=== PATIENT | female | born 1975 | race African-American/Black ===

== ENCOUNTER 2018-08-17 08:07 | Emergency (ER) | payer OTHER ==
[~2018-08-17] VITALS: Ht 165.1 cm; Wt 100.5 kg
--- NOTE | 2018-08-17 08:09 | NUR ---
PT AMBULATED TO ER BED 11
[2018-08-17] MEDS ORDERED: ALBUTEROL SULFATE/IPRATROPIU 3 ML SOL IH ONE (08:20)
--- NOTE | 2018-08-17 08:27 | NUR ---
C/O SOB X 2 DAYS----COUGH CONGESTION YELLOW PHLEGM FATIGUE >1 WK; 3 WORDED SPEECH WITH SUPRACLAVICULAR ACCESSORY MUSCLE USE NOTED. UPON AUSCULTATION, EXPIRATORY WHEEZES HEARD. PATIENT POSITIONED FOR COMFORT; HOB ELEVATED; BEDRAILS UP X1; BED DOWN. ER MD MADE AWARE OF PT STATUS.
[2018-08-17 09:01] LABS: BASOPHILS % (AUTO) 0.4 % (0.0-2.0); EOSINOPHILS % (AUTO) 0.4 % (0.0-4.0); HEMATOCRIT 40.2 % (36-48); HEMOGLOBIN 12.6 g/dL (12.0-16.0); LYMPHOCYTES # (AUTO) 2.4 K/uL (2.5-16.5); MEAN CORPUSCULAR HEMOGLOBIN 28 pg (27-31); MEAN CORPUSCULAR HGB CONC 31 g/dL (33-37); MEAN CORPUSCULAR VOLUME 90.2 fL (80-94); MONOCYTES # (AUTO) 0.3 K/uL (0.8-1.0); MONOCYTES % (AUTO) 4.7 % (1.7-9.3); NEUTROPHILS # (AUTO) 3.5 K/uL (1.8-7.7); NEUTROPHILS % (AUTO) 56.5 % (42.2-75.2); PLATELET COUNT (AUTO) 240 K/uL (140-450); RED BLOOD CELL COUNT(AUTO) 4.45 MIL/uL (4.20-5.40); RED CELL DISTRIBUTION WIDTH 18.2 % (11.6-13.7); WHITE BLOOD COUNT (AUTO) 6.2 K/uL (4.8-10.8)
[2018-08-17 09:27] LABS: ANION GAP 12.6 (8-16); CARBON DIOXIDE 22.7 mmol/L (21-32); CREATININE 0.9 mg/dL (0.6-1.3); POTASSIUM 4.3 mmol/L (3.5-5.1)
--- NOTE | 2018-08-17 09:48 | NUR ---
CT ANGIO WITH CONTRAST ORDERED. CONSENTS SIGNED. IV PLACED. AWAITING BLAST SETTER.
--- NOTE | 2018-08-17 10:30 | NUR ---
PT BACK FOR CT, IV INFILTRATED WITH NS FLUSH. PT COMPLAINING OF PAIN 10/10. RIGHT AC APPEARS SWOLLEN AND TENDER TO TOUCH.
--- NOTE | 2018-08-17 11:02 | NUR ---
PT TAKEN TO CT, NEW IV PLACED LEFT AC. LINE FLUSHING WELL.
--- NOTE | 2018-08-17 11:11 | NUR ---
PT BACK FROM CT
--- NOTE | 2018-08-17 12:20 | NUR ---
Patient does not wish to proceed with medical care recommended by DR. OLIVA. Patient given information related to possible complications, up to and including , which could occur as a result of leaving hospital at this time. Patient verbalizes understanding of risks involved leaving against medical advice. Patient has signed AMA form. STATES WILL COME BACK AFTER TAKES CARE OF PERSONAL BUSINESS.
== END 2018-08-17 12:20 | disposition left against medical advice (07) ==
LOC: MED 08:07
DX: J90 Pleural effusion, not elsewhere classified (principal); J45.909 Unspecified asthma, uncomplicated
CPT/HCPCS: 36415; 71045; 71275; 80048; 81002; 81025; 83880; 84484; 84702; 85025; 85379; 93005; 94640; 99284; J7620; Q0092; Q9967

== ENCOUNTER 2018-08-17 13:26 | Inpatient (IN) | payer OTHER ==
[~2018-08-17] VITALS: Ht 165.1 cm; Wt 99.8 kg
[2018-08-17 14:10] VITALS: BP 154/105
--- NOTE | 2018-08-17 14:10 | NUR ---
PT AMBULATED TO ER BED 04
--- NOTE | 2018-08-17 14:54 | NUR ---
43/ F BIB SELF, C/O X SOB, CHEST WALL PAIN, COUGH WITH CONGESTION, AND FATIGUE X3 WEEKS. PATIENT IS AOX4, CLEAR SPEECH, WHEEZING UPON AUSCULTATION, LABORED BREATHING WITH ACSESSORY MUSCLES USE. PATIENT STATES THAT CHEST WALL PAIN ONLY OCCURS WHEN AMBULATES. OCCASIONAL VOMIT X 3 WEEKS. STEADY AMBULATION, DIZZY WHEN AMBULATING PATIENT WAS IN ER EARLIER TODAY NEEDED TO LEAVE CAME BACK TO BE ADMITTED. PATIENT IN GOWN, SAFETY PRECAUTIONS IN PLACE.
[2018-08-17] MEDS ORDERED: HYDROcodone/APAP 5/325 MG 1 TAB TAB PO PRN (14:55)
[2018-08-17] MEDS ORDERED: ALBUTEROL 0.083% 2.5 MG/3 ML NEBU IH PRN (14:55)
[2018-08-17] MEDS ORDERED: ACETAMINOPHEN 325 MG TAB PO PRN (14:55)
[2018-08-17] MEDS ORDERED: ONDANSETRON 4 MG/2 ML VIAL IVP PRN (14:55)
[2018-08-17 16:42] VITALS: BP 149/110
--- NOTE | 2018-08-17 16:42 | NUR ---
Pt report given to FAZAL TODD. Transfer of care at this time.
--- NOTE | 2018-08-17 16:42 | NUR ---
RECEIVED BEDSIDE REPORT FROM ER NURSE. PATIENT AAOX4. PATIENT ON ROOM AIR WITH NO DISTRESS NOTED. PATIENT AMBULATORY AND CONTINENT. PATIENT ON TELE MONITOR. IV ON R FA 22G SALINE LOCK. IV CLEAN DRY AND INTACT. BED IN LOW POSITION, CALL LIGHT WITHIN REACH, WILL CONTINUE TO MONITOR.
[2018-08-17 17:09] LABS: CREATINE KINASE MB 0.9 ng/mL (0-3.6)
[2018-08-17] MEDS: CARVEDILOL 3.125 MG TAB PO SCH (17:25)
[2018-08-17] MEDS: FUROSEMIDE 40 MG/4 ML VIAL IVP SCH (17:25)
--- NOTE | 2018-08-17 17:32 | NUR ---
ADMINISTERED SCHEDULED MEDS TO PATIENT. PATIENT TOLERATED WELL. WILL CONTINUE TO MONITOR.
--- NOTE | 2018-08-17 19:35 | NUR ---
RECEIVED FROM AM RN IN BED SITTING UP AND TALKING TO SOMEONE ON THE CELLPHONE. GOOD AFFECT. NO SOB NOTED. CALL LIGHT WITH IN REACH. CARE PLAN DISCUSSED WITH HER. TELEMETRY MONITORING. DX. SOB/PLEURAL EFFUSION. 02 SAT ROOM AIR 100 %. AFEBRILE. RE-ORIENTED TO CALL LIGHT USE AND ROOM. ENCOURAGED TO CALL FOR ANY HELP SHE MAY NEED OR IF IN PAIN.
--- NOTE | 2018-08-17 19:42 | NUR ---
GAVE BEDSIDE REPORT TO SURGICAL ASSIST NURSE. PATIENT ENDORSED IN STABLE CONDITION.
[2018-08-17 21:07] VITALS: BP 130/99
--- NOTE | 2018-08-17 22:15 | NUR ---
AWAKE AND TALKING TO SOMEONE ON HER CELL PHONE. NO COMPLAINTS DONE. NO SOB.
[2018-08-18] VITALS (9 sets, daily range): BP systolic 116–171; BP diastolic 82–100
--- NOTE | 2018-08-18 01:14 | NUR ---
NO COMPLAINTS DONE. STILL AWAKE AT THIS TIME TALKING TO SOMEONE ON THE PHONE. ENCOURAGED TO SLEEP AND REST. 02 SAT ROOM AIR IS 100 %. CALL LIGHT WITH IN REACH.
--- NOTE | 2018-08-18 03:00 | NUR ---
SLEEPING WELL. NO RESTLESSNESS NOTED.
--- NOTE | 2018-08-18 05:30 | NUR ---
SLEPT WELL THIS SHIFT. WAKES UP EASILY WHEN CALLED BY NAME OR WHEN TOUCHED. ABLE TO VERBALIZE NEEDS WELL.
--- NOTE | 2018-08-18 07:12 | NUR ---
RECEIVED BEDSIDE REPORT FROM POULTRYMAN NURSE. PATIENT AAOX4. PATIENT ON ROOM AIR, WITH NO SIGNS OF DISTRESS. PATIENT AMBULATORY AND CONTINENT. PATIENT ON TELE MONITOR. IV ON R FA 22 G, SALINE LOCK. IV CLEAN DRY AND INTACT. PATIENT ON STANDARD ISOLATION. BED IN LOW POSITION, CALL LIGHT WITHIN REACH. WILL CONTINUE TO MONITOR.
--- NOTE | 2018-08-18 07:15 | NUR ---
ENDORSED TO THE NEXT RN FOR CONTINUITY OF CARE AWAKE AND ALERT. NO SOB.
[2018-08-18 07:48] LABS: BASOPHILS % (AUTO) 0.3 % (0.0-2.0); EOSINOPHILS # (AUTO) 0.1 K/uL (0-0.4); HEMATOCRIT 37.6 % (36-48); HEMOGLOBIN 12.1 g/dL (12.0-16.0); LYMPHOCYTES # (AUTO) 2.4 K/uL (2.5-16.5); MEAN CORPUSCULAR HEMOGLOBIN 29 pg (27-31); MEAN CORPUSCULAR HGB CONC 32 g/dL (33-37); MEAN CORPUSCULAR VOLUME 89.2 fL (80-94); MONOCYTES # (AUTO) 0.3 K/uL (0.8-1.0); MONOCYTES % (AUTO) 5.7 % (1.7-9.3); PLATELET COUNT (AUTO) 221 K/uL (140-450); RED BLOOD CELL COUNT(AUTO) 4.21 MIL/uL (4.20-5.40); RED CELL DISTRIBUTION WIDTH 18.2 % (11.6-13.7); WHITE BLOOD COUNT (AUTO) 5.8 K/uL (4.8-10.8)
[2018-08-18 08:20] LABS: CARBON DIOXIDE 23.7 mmol/L (21-32); CREATININE 0.8 mg/dL (0.6-1.3); PHOSPHORUS 4.2 mg/dL (2.5-4.9); POTASSIUM 3.7 mmol/L (3.5-5.1)
--- NOTE | 2018-08-18 08:22 | NUR ---
CHART REVIEW DONE.
--- NOTE | 2018-08-18 08:37 | NUR ---
PATIENT HAS BEEN SCREENED AND CATEGORIZED MODERATE NUTRITION RISK. PATIENT WILL BE SEEN WITHIN 3-5 DAYS OF ADMISSION. 08/20/18 08/22/[address]
[2018-08-18] MEDS: ASPIRIN 81 MG TAB.CHEW PO SCH (08:45)
[2018-08-18] MEDS: CARVEDILOL 3.125 MG TAB PO SCH ×2 (08:46→17:00)
[2018-08-18] MEDS: FUROSEMIDE 40 MG/4 ML VIAL IVP SCH ×2 (08:46→17:11)
--- NOTE | 2018-08-18 08:51 | NUR ---
ADMINISTERED SCHEDULED MEDS TO PATIENT. PATIENT TOLERATED WELL. WILL CONTINUE TO MONITOR.
--- NOTE | 2018-08-18 09:18 | NUR ---
CALLED DR. PEREZ BENJAMIN'S OFFICE AND SPOKE WITH MERON. MADE A FOLLOW UP APPOINTMENT WITH THE PATIENT FOR AUG 26 AT 9:15A.M. PHONE [phone]. AD[address]ESS [address] [place] [id number]. GAVE COPY OF APPOINTMENT TO PATIENT.
[2018-08-18] MEDS: ENOXAPARIN 40 MG/0.4 ML SYR SUBQ SCH (09:27)
[2018-08-18 12:05] LABS: CREATINE KINASE MB 1.4 ng/mL (0-3.6)
--- NOTE | 2018-08-18 12:26 | NUR ---
NOTIFIED DR. RAMIREZ VIA PHONE CRITICAL LAB TROPONIN 0.090. DR. RAMIREZ SAID TO NOTIFY Aiyana ANDRE
--- NOTE | 2018-08-18 12:30 | NUR ---
PAGED DR. ANDRE REGARDING CRITICAL TROPONIN LEVEL 0.090. WAITING FOR CALL BACK.
[2018-08-18 13:17] LABS: APPEARANCE,URINE CLEAR (CLEAR); BILIRUBIN,URINE NEGATIVE (NEGATIVE); BLOOD, URINE NEGATIVE (NEGATIVE); COLOR,URINE YELLOW (YELLOW); LEUKOCYTE ESTERASE ,URINE NEGATIVE (NEGATIVE); NITRITE, URINE NEGATIVE (NEGATIVE); PH,URINE 7.5 (5.0-9.0); UGLUCOSE NEGATIVE (NEGATIVE)
[2018-08-18 13:20] LABS: RBC,URINE NONE SEEN /HPF (0-5); WBC,URINE 0-5 (RARE) /HPF (0-5)
--- NOTE | 2018-08-18 13:26 | NUR ---
PATIENT SPEAKING ON HER CELL PHONE. NO SIGNS OF DISTRESS, ON ROOM AIR. WILL CONTINUE TO MONITOR.
--- NOTE | 2018-08-18 14:22 | NUR ---
PATIENT SITTING UP IN BED SPEAKING ON CELL PHONE. ON ROOM AIR, NO SIGNS OF DISTRESS NOTED. WILL CONTINUE TO MONITOR.
[2018-08-18 15:39] LABS: FREE T4 (FREE THYROXINE) 0.93 ng/dL (0.76-1.46); THYROID STIMULATING HORMONE 2.25 uIU/mL (0.34-3.74)
--- NOTE | 2018-08-18 17:16 | NUR ---
ADMINISTERED SCHEDULED MEDS. PATIENT TOLERATED WELL. WILL CONTINUE TO MONITOR.
--- NOTE | 2018-08-18 19:13 | NUR ---
RECEIVED FROM AM RN IN BED AWAKE AND ALERT. NO SOB. DENIES ANY PAIN. CALL LIGHT WITH IN REACH. TELEMETRY MONITORING. NO COMPLAINTS DONE AT THIS TIME. IVF SITE INTACT AND NO INFILTRATION . GOOD BLOOD RETURN.
--- NOTE | 2018-08-18 19:37 | NUR ---
GAVE BEDSIDE REPORT TO ELECTROENCEPHALOGRAM TECHNOLOGIST NURSE. PATIENT ENDORSED IN STABLE CONDITION.
[2018-08-19] VITALS (8 sets, daily range): BP systolic 116–144; BP diastolic 89–108
--- NOTE | 2018-08-19 00:23 | NUR ---
SLEPT WELL THIS SHIFT. WOKE UP ESILY WHEN TOUCHED OR CALLED BY NAME. NO COMPLAINTS DONE. CALL LIGHT WITH IN REACH.
--- NOTE | 2018-08-19 04:00 | NUR ---
PT. SLEEPING WELL THIS SHIFT. CALL LIGHT WITH IN REACH. NO SOB. NO COMPLAINTS.
[2018-08-19 05:59] LABS: BASOPHILS % (AUTO) 0.3 % (0.0-2.0); EOSINOPHILS # (AUTO) 0.1 K/uL (0-0.4); EOSINOPHILS % (AUTO) 1.3 % (0.0-4.0); HEMOGLOBIN 12.4 g/dL (12.0-16.0); LYMPHOCYTES # (AUTO) 2.3 K/uL (2.5-16.5); LYMPHOCYTES % (AUTO) 46.6 % (20.5-51.1); MEAN CORPUSCULAR HEMOGLOBIN 29 pg (27-31); MEAN CORPUSCULAR HGB CONC 32 g/dL (33-37); MEAN CORPUSCULAR VOLUME 89.6 fL (80-94); MONOCYTES # (AUTO) 0.4 K/uL (0.8-1.0); MONOCYTES % (AUTO) 9.2 % (1.7-9.3); NEUTROPHILS # (AUTO) 2.1 K/uL (1.8-7.7); NEUTROPHILS % (AUTO) 42.6 % (42.2-75.2); PLATELET COUNT (AUTO) 226 K/uL (140-450); RED BLOOD CELL COUNT(AUTO) 4.36 MIL/uL (4.20-5.40); RED CELL DISTRIBUTION WIDTH 18.6 % (11.6-13.7); WHITE BLOOD COUNT (AUTO) 4.9 K/uL (4.8-10.8)
--- NOTE | 2018-08-19 07:03 | NUR ---
AWAKE AT THIS TIME AND WATCHING TV. NO COMPLAINTS OF ANY SOB OR PAIN DONE.
--- NOTE | 2018-08-19 07:05 | NUR ---
SBAR REPORT RECEIVED FROM RN AT PT BEDSIDE. PATIENT SEEN RESTING IN BED. ALERT AND ORIENTED. FOLLOWS COMMANDS. DENIES DISCOMFORT. ON ROOM AIR. UPDATED ON CURRENT PLAN OF CARE, IN AGREEMENT. IV SITE PATENT AND INTACT. CALL LIGHT WITHIN REACH.
[2018-08-19 08:27] LABS: ANION GAP 13.1 (8-16); CARBON DIOXIDE 27.3 mmol/L (21-32); CREATININE 0.9 mg/dL (0.6-1.3); POTASSIUM 3.4 mmol/L (3.5-5.1)
[2018-08-19] MEDS: FUROSEMIDE 40 MG/4 ML VIAL IVP SCH (08:31)
[2018-08-19] MEDS: CARVEDILOL 3.125 MG TAB PO SCH (08:31)
[2018-08-19] MEDS: ASPIRIN 81 MG TAB.CHEW PO SCH (08:32)
[2018-08-19] MEDS: ENOXAPARIN 40 MG/0.4 ML SYR SUBQ SCH (08:40)
[2018-08-19] MEDS ORDERED: LOSARTAN 25 MG TAB PO SCH (09:00)
[2018-08-19] MEDS ORDERED: SPIRONOLACTONE 25 MG TAB PO SCH (09:00)
--- NOTE | 2018-08-19 10:56 | NUR ---
PATIENT RESTING IN BED, NO ACUTE DISTRESS NOTED. ALL NEEDS MET.
--- NOTE | 2018-08-19 12:34 | NUR ---
PATIENT RESTING IN BED, DENIES DISCOMFORT, NO ACUTE DISTRESS NOTED. AWAITING MD FOR POSSIBLE D/C PER PATIENT.
--- NOTE | 2018-08-19 14:02 | NUR ---
CHART REVIEW DONE.
[2018-08-19] MEDS ORDERED: POTASSIUM CHLORIDE 10 MEQ TABER PO SCH (15:00)
--- NOTE | 2018-08-19 15:40 | NUR ---
PATIENT SEEN BY DR. RAMIREZ AT BEDSIDE. PATIENT MADE CONCERNS/NEEDS KNOWN TO MD. SPOKE WITH DR. JES QUILES, MADE AWARE OF PATIENT WANT TO D/C HOME. CLEARED BY CARDIAC CONSULT, F/U IN ONE WEEK. DR. RAMIREZ MADE AWARE, IN AGREEMENT WITH DISCHARGE, AWAITING D/C.
[2018-08-19] MEDS ORDERED: FURO-572 PO (16:01)
[2018-08-19] MEDS ORDERED: CARV3.122 PO (16:01)
[2018-08-19] MEDS ORDERED: LOSA25TA1 PO (16:01)
[2018-08-19] MEDS ORDERED: SPIR25TA PO (16:01)
--- NOTE | 2018-08-19 16:20 | NUR ---
PATIENT DISCHARGE INSTRUCTIONS GIVEN. DIAGNOSIS TEACHING AND F/U APPOINTMENTS GIVEN WITH MEDICATION TEACHING, VERBALIZED UNDERSTANDING. PATIENT IV REMOVED, CANULA INTACT. DENIES PAIN. NO S/S OF ACUTE DISTRESS NOTED. AMBULATORY, DENIES SOB. PATIENT WHEELED TO FRONT LOBBY, TO TAKE PT HOME.
== END 2018-08-19 16:20 | disposition home or self-care (01) | DRG 194 ==
LOC: MED 13:26 → MTU 14:33
PROVIDERS: ADMIT Internal Medicine; ATTEND Internal Medicine
DX: I50.21 Acute systolic (congestive) heart failure (principal); I24.9 Acute ischemic heart disease, unspecified; K76.1 Chronic passive congestion of liver; E44.1 Mild protein-calorie malnutrition; J45.909 Unspecified asthma, uncomplicated; E04.9 Nontoxic goiter, unspecified; I25.10 Atherosclerotic heart disease of native coronary artery without angina pectoris; Z98.891 History of uterine scar from previous surgery
CPT/HCPCS: 36415; 80048; 80053; 81001; 82550; 82553; 83735; 83880; 84100; 84439; 84443; 84484; 85025; 93005; 99285; J1650; J1940